=== PATIENT | male | born 1970 | race Caucasian/White ===

== ENCOUNTER 2017-01-14 11:56 | Emergency (ER) | payer OTHER ==
[~2017-01-14] VITALS: Ht 182.9 cm; Wt 68.4 kg
[2017-01-14] MEDS ORDERED: PEN-VEE K,VEET500 MG PO (13:52)
[2017-01-14] MEDS ORDERED: NORCO 5/3251 TABLET PO (13:52)
[2017-01-14 14:10] VITALS: BP 114/86
== END 2017-01-14 14:10 | disposition home or self-care (01) ==
LOC: EME 11:56
DX: K02.9 Dental caries, unspecified (principal)
CPT/HCPCS: 99281; 99283